=== PATIENT | female | born 1995 | race Hispanic/Latino ===

== ENCOUNTER 2019-03-28 12:11 | Emergency (ER) | payer OTHER ==
[~2019-03-28] VITALS: Ht 162.6 cm; Wt 90.7 kg
--- OUTSIDE RECORDS SUMMARY | 2019-03-28 12:14 | XMS REPORT ---
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 Allergies, Adverse Reactions, Alerts Allergy Name Allergy Type Status Severity Reaction(s) Onset Date Inactive Date Treating Clinician Comments No Known Allergies DA Active U 2018-05-20 00:00:00 Medications This patient has no known medications. Results Test Description Test Time Test Comments Text Results Atomic Results Result Comments - CTA HEAD 2018-05-20 13:27:00 Name: DELFINO ARMSTRONG [facility] : 1995 Age/S: 22 / F [address] Unit #: [id number] Loc: [place] [address] Phys: Serena Manrique MD Acct: [id number] Dis Date: Status: REG ER PHONE #: [phone] Exam Date: 05/20/2018 1200 FAX #: [phone] Reason: syncope, rle weakness EXAMS: CPT CODE: [id number] CTA HEAD 85200 HISTORY: Syncopal episode and right extremity weakness. COMPARISON: Head CT from same day. CTA NECK: 3-D images available. 100 mL of Isovue-370. Automated exposure control. NASCET criteria. The lung apices are clear. Superior mediastinum is unremarkable. Thyroid glands are normal. No canal or foraminal stenosis within the cervical spine. Thyroid glands are unremarkable. No pathologic adenopathy. Symmetrical fossa of Rosenmueller. Intraorbital contents appear unremarkable. Right side: Subclavian artery is widely patent. Nondominant vertebral artery is patent. CCA is widely patent. ICA and ECA are widely patent without hemodynamically significant stenosis. Left side: Subclavian artery is widely patent. Codominant vertebral artery remains widely patent. ICA, ECA and CCA are widely patent. No hemodynamically significant stenosis is noted. IMPRESSION: Widely patent bilateral ICA, CCA and ECA. Widely patent bilateral vertebral arteries with left dominance without dissection. CTA duckwater of [place]: 3-D images. Intracranial vertebral arteries are widely patent. The superior cerebellar arteries and both HAZMAT CDL DRIVER are patent. Left posterior communicating artery is patent. Right posterior communicating artery is absent. Bilateral petrous, cavernous and supraclinoid ICA are widely patent. Both MCA are widely patent. Both JOSE CARLOS are widely patent. Anterior communicating artery is patent. No aneurysm. Dural sinuses are well-opacified. IMPRESSION: Patent duck[place] of [place] with the exception of right posterior communicating artery which appears to be absent. No hemodynamically significant stenosis or aneurysm. PAGE 1 Signed Report (CONTINUED) Name: DELFINO ARMSTRONG [facility] : 1995 Age/S: 22 / F [address] Unit #: [id number] Loc: [facility] [place] [address] Phys: Serena Manrique MD Acct: [id number] Dis Date: Status: REG ER PHONE #: [phone] Exam Date: 05/20/2018 1200 FAX #: [phone] Reason: syncope, rle weakness EXAMS: CPT CODE: [id number] CTA HEAD 30668 <Continued> at 1327 Reported and signed by: Ricco Walsh M.D. CC: Serena Manrique MD Technologist:Mata Nguyen RT(R),(MR),(CT) CTDI: DLP: Trnscb Date/Time: 05/20/2018 (1327) t.[email or web address] Orig Print D/T: S: 05/20/2018 (0055) CTDI: DLP: PAGE 2 Signed Report - CTA NECK 2018-05-20 13:27:00 Name: DELFINO ARMSTRONG [facility] : 1995 Age/S: 22 / F [address] Unit #: [id number] Loc: [place] [address] Phys: Serena Manrique MD Acct: [id number] Dis Date: Status: REG ER PHONE #: [phone] Exam Date: 05/20/2018 1200 FAX #: [phone] Reason: syncope, rle weakness EXAMS: CPT CODE: [id number] CTA NECK 85447 HISTORY: Syncopal episode and right extremity weakness. COMPARISON: Head CT from same day. CTA NECK: 3-D images available. 100 mL of Isovue-370. Automated exposure control. NASCET criteria. The lung apices are clear. Superior mediastinum is unremarkable. Thyroid glands are normal. No canal or foraminal stenosis within the cervical spine. Thyroid glands are unremarkable. No pathologic adenopathy. Symmetrical fossa of Rosenmueller. Intraorbital contents appear unremarkable. Right side: Subclavian artery is widely patent. Nondominant vertebral artery is patent. CCA is widely patent. ICA and ECA are widely patent without hemodynamically significant stenosis. Left side: Subclavian artery is widely patent. Codominant vertebral artery remains widely patent. ICA, ECA and CCA are widely patent. No hemodynamically significant stenosis is noted. IMPRESSION: Widely patent bilateral ICA, CCA and ECA. Widely patent bilateral vertebral arteries with left dominance without dissection. CTA duck[place] of [place]: 3-D images. Intracranial vertebral arteries are widely patent. The superior cerebellar arteries and both HAZMAT CDL DRIVER are patent. Left posterior communicating artery is patent. Right posterior communicating artery is absent. Bilateral petrous, cavernous and supraclinoid ICA are widely patent. Both MCA are widely patent. Both JOSE CARLOS are widely patent. Anterior communicating artery is patent. No aneurysm. Dural sinuses are well-opacified. IMPRESSION: Patent duck[place] of [place] with the exception of right posterior communicating artery which appears to be absent. No hemodynamically significant stenosis or aneurysm. PAGE 1 Signed Report (CONTINUED) Name: PATTIDELFINO [facility] : 1995 Age/S: 22 / F [address] Unit #: [id number] Loc: [place] [address] Phys: Serena Manrique MD Acct: [id number] Dis Date: Status: REG ER PHONE #: [phone] Exam Date: 05/20/2018 1200 FAX #: [phone] Reason: syncope, rle weakness EXAMS: CPT CODE: [id number] CTA NECK 86691 <Continued> at 1327 Reported and signed by: Ricco Walsh M.D. CC: Serena Manrique MD Technologist:Mata Nguyen RT(R),(MR),(CT) CTDI: DLP: Trnscb Date/Time: 05/20/2018 (1327) t.[email or web address] Orig Print D/T: S: 05/20/2018 (0342) CTDI: DLP: PAGE 2 Signed Report URINALYSIS COMPLETE 2018-05-20 10:47:00 UA COLOR (test code=COLU) YELLOW YELLOW UA APPEARANCE (test code=APPU) Cloudy CLEAR UA GLUCOSE DIPSTICK (test code=DGLUU) NEGATIVE mg/dL NEGATIVE UA BILIRUBIN DIPSTICK (test code=BILU) NEGATIVE mg/dL NEGATIVE UA KETONE DIPSTICK (test code=KETU) Negative mg/dL NEGATIVE UA SPECIFIC GRAVITY (test code=SGU) 1.019 1.001-1.035 UA BLOOD DIPSTICK (test code=LAMONT) 2+ (Moderate) NEGATIVE UA PH DIPSTICK (test code=ART) 5.0 5.0-8.0 UA PROTEIN DIPSTICK (test code=PROU) Negative mg/dL NEGATIVE UA UROBILINIOGEN DIPSTICK (test code=URO) NEGATIVE mg/dL NEGATIVE UA NITRITE DIPSTICK (test code=WILMER) NEGATIVE NEGATIVE UA LEUKOCYTE ESTERASE W REFLEX (test code=LEUUR) TRACE NEGATIVE UA WBC (test code=WBCU) 0-5 #/HPF 0-5 UA RBC (test code=RBCU) 6-10 #/HPF 0-5 UA EPITHELIAL CELLS (test code=EPIU) FEW per HPF FEW UA MUCUS (test code=MUCU) MANY #/LPF FEW Urine Source? Clean CatchDRUGS OF ABUSE SCREEN [id number] 10:47:00* Test Item Value Reference Range Comments URN COCAINE (test code=COCAURN) POSITIVE <300 ng/mL This test provides only a preliminary test result. A morespecific alternate chemical method must be used in order toobtain a confirmed analytical result. Gas chromatography/mass spectrometry (GC/MS) is thepreferred confirmatory method. Other chemical confirmationmethods are available. Clinical consideration and professional judgment should be applied to any drug of abusetest result, particularly when preliminary positive resultsare used.Unconfirmed screening results must not be used fornon-medical purposes (e.g., employment testing, legaltesting). URN CANNABINOIDS (test code=CANNABURN) NEGATIVE <50 ng/mL URN AMPHETAMINE (test code=AMPHETURN) POSITIVE <1000 ng/mL This test provides only a preliminary test result. A morespecific alternate chemical method must be used in order toobtain a confirmed analytical result. Gas chromatography/mass spectrometry (GC/MS) is thepreferred confirmatory method. Other chemical confirmationmethods are available. Clinical consideration and professional judgment should be applied to any drug of abusetest result, particularly when preliminary positive resultsare used.Unconfirmed screening results must not be used fornon-medical purposes (e.g., employment testing, legaltesting). URN BARBITURATE (test code=BARBITURN) NEGATIVE <200 ng/mL URN BENZODIAZEPINE (test code=BENZOURN) NEGATIVE <200 ng/mL URN OPIATES (test code=OPIATURN) NEGATIVE <300 ng/mL URN PHENCYCLIDINE (PCP) (test code=PHENCURN) NEGATIVE <25 ng/mL URN METHADONE (test code=METHAURN) NEGATIVE <300 ng/mL Urine Source? Clean CatchURINALYSIS [id number] 10:25:00* Test Item Value Reference Range Comments UA COLOR (test code=COLU) YELLOW YELLOW UA APPEARANCE (test code=APPU) Cloudy CLEAR UA GLUCOSE DIPSTICK (test code=DGLUU) NEGATIVE mg/dL NEGATIVE UA BILIRUBIN DIPSTICK (test code=BILU) NEGATIVE mg/dL NEGATIVE UA KETONE DIPSTICK (test code=KETU) Negative mg/dL NEGATIVE UA SPECIFIC GRAVITY (test code=SGU) 1.019 1.001-1.035 UA BLOOD DIPSTICK (test code=LAMONT) 2+ (Moderate) NEGATIVE UA PH DIPSTICK (test code=ART) 5.0 5.0-8.0 UA PROTEIN DIPSTICK (test code=PROU) Negative mg/dL NEGATIVE UA UROBILINIOGEN DIPSTICK (test code=URO) NEGATIVE mg/dL NEGATIVE UA NITRITE DIPSTICK (test code=WILMER) NEGATIVE NEGATIVE UA LEUKOCYTE ESTERASE W REFLEX (test code=LEUUR) TRACE NEGATIVE UA WBC (test code=WBCU) 0-5 #/HPF 0-5 UA RBC (test code=RBCU) 6-10 #/HPF 0-5 UA EPITHELIAL CELLS (test code=EPIU) FEW per HPF FEW UA MUCUS (test code=MUCU) MANY #/LPF FEW Urine Source? Clean CatchDRUGS OF ABUSE SCREEN [id number] 10:25:00* Test Item Value Reference Range Comments URN COCAINE (test code=COCAURN) <300 ng/mL URN CANNABINOIDS (test code=CANNABURN) <50 ng/mL URN AMPHETAMINE (test code=AMPHETURN) <1000 ng/mL URN BARBITURATE (test code=BARBITURN) <200 ng/mL URN BENZODIAZEPINE (test code=BENZOURN) <200 ng/mL URN OPIATES (test code=OPIATURN) <300 ng/mL URN PHENCYCLIDINE (PCP) (test code=PHENCURN) <25 ng/mL URN METHADONE (test code=METHAURN) <300 ng/mL Urine Source? Clean CatchURINALYSIS [id number] 10:24:00* Test Item Value Reference Range Comments UA COLOR (test code=COLU) YELLOW YELLOW UA APPEARANCE (test code=APPU) Cloudy CLEAR UA GLUCOSE DIPSTICK (test code=DGLUU) NEGATIVE mg/dL NEGATIVE UA BILIRUBIN DIPSTICK (test code=BILU) NEGATIVE mg/dL NEGATIVE UA KETONE DIPSTICK (test code=KETU) Negative mg/dL NEGATIVE UA SPECIFIC GRAVITY (test code=SGU) 1.019 1.001-1.035 UA BLOOD DIPSTICK (test code=LAMONT) 2+ (Moderate) NEGATIVE UA PH DIPSTICK (test code=ART) 5.0 5.0-8.0 UA PROTEIN DIPSTICK (test code=PROU) Negative mg/dL NEGATIVE UA UROBILINIOGEN DIPSTICK (test code=URO) NEGATIVE mg/dL NEGATIVE UA NITRITE DIPSTICK (test code=WILMER) NEGATIVE NEGATIVE UA LEUKOCYTE ESTERASE W REFLEX (test code=LEUUR) TRACE NEGATIVE UA WBC (test code=WBCU) 0-5 #/HPF 0-5 UA EPITHELIAL CELLS (test code=EPIU) FEW per HPF FEW Urine Source? Clean CatchDRUGS OF ABUSE SCREEN [id number] 10:24:00* Test Item Value Reference Range Comments URN COCAINE (test code=COCAURN) <300 ng/mL URN CANNABINOIDS (test code=CANNABURN) <50 ng/mL URN AMPHETAMINE (test code=AMPHETURN) <1000 ng/mL URN BARBITURATE (test code=BARBITURN) <200 ng/mL URN BENZODIAZEPINE (test code=BENZOURN) <200 ng/mL URN OPIATES (test code=OPIATURN) <300 ng/mL URN PHENCYCLIDINE (PCP) (test code=PHENCURN) <25 ng/mL URN METHADONE (test code=METHAURN) <300 ng/mL Urine Source? Clean CatchURINALYSIS [id number] 10:21:00* Test Item Value Reference Range Comments UA COLOR (test code=COLU) YELLOW YELLOW UA APPEARANCE (test code=APPU) Cloudy CLEAR UA GLUCOSE DIPSTICK (test code=DGLUU) NEGATIVE mg/dL NEGATIVE UA BILIRUBIN DIPSTICK (test code=BILU) NEGATIVE mg/dL NEGATIVE UA KETONE DIPSTICK (test code=KETU) Negative mg/dL NEGATIVE UA SPECIFIC GRAVITY (test code=SGU) 1.019 1.001-1.035 UA BLOOD DIPSTICK (test code=LAMONT) 2+ (Moderate) NEGATIVE UA PH DIPSTICK (test code=ART) 5.0 5.0-8.0 UA PROTEIN DIPSTICK (test code=PROU) Negative mg/dL NEGATIVE UA UROBILINIOGEN DIPSTICK (test code=URO) NEGATIVE mg/dL NEGATIVE UA NITRITE DIPSTICK (test code=WILMER) NEGATIVE NEGATIVE UA LEUKOCYTE ESTERASE W REFLEX (test code=LEUUR) TRACE NEGATIVE UA WBC (test code=WBCU) per HPF 0-5 Urine Source? Clean CatchDRUGS OF ABUSE SCREEN [id number] 10:21:00* Test Item Value Reference Range Comments URN COCAINE (test code=COCAURN) <300 ng/mL URN CANNABINOIDS (test code=CANNABURN) <50 ng/mL URN AMPHETAMINE (test code=AMPHETURN) <1000 ng/mL URN BARBITURATE (test code=BARBITURN) <200 ng/mL URN BENZODIAZEPINE (test code=BENZOURN) <200 ng/mL URN OPIATES (test code=OPIATURN) <300 ng/mL URN PHENCYCLIDINE (PCP) (test code=PHENCURN) <25 ng/mL URN METHADONE (test code=METHAURN) <300 ng/mL Urine Source? Clean CatchBASIC METABOLIC [id number] 10:13:00* Test Item Value Reference Range Comments SODIUM (test code=NA) 141 mmol/L 136-145 POTASSIUM (test code=K) 3.7 mmol/L 3.5-5.1 CHLORIDE (test code=CL) 107.0 mmol/L 98-107 CARBON DIOXIDE (test code=CO2) 27.0 mmol/L 21-32 ANION GAP (test code=GAP) 10.7 10-20 GLUCOSE (test code=GLU) 98 mg/dL 74-106 BLOOD UREA NITROGEN (test code=BUN) 9 mg/dL 7-18 GLOMERULAR FILTRATION RATE (test code=GFR) > 60 mL/min >=60 Estimated GFR by using Modified MDRD formula.Chronic kidney disease is defined as either kidney damageor GFR <60 mL/min/1.73 m2 for >3 months. CREATININE (test code=CREAT) 0.80 mg/dL 0.55-1.02 Note change in reference range due to change in reagent. BUN/CREATININE RATIO (test code=BUN/CREA) 11.6 10-20 CALCIUM (test code=CA) 8.7 mg/dL 8.5-10.1 HEPATIC FUNCTION [id number] 10:13:00* Test Item Value Reference Range Comments TOTAL PROTEIN (test code=PROT) 8.1 gram/dL 6.4-8.2 ALBUMIN (test code=ALB) 3.8 g/dL 3.4-5.0 GLOBULIN (test code=GLOB) 4.3 gram/dL 2.7-4.2 ALBUMIN/GLOBULIN RATIO (test code=A/G) 0.9 0.75-1.50 BILIRUBIN TOTAL (test code=BILT) 0.30 mg/dL 0.0-1.0 BILIRUBIN DIRECT (test code=BILD) 0.10 mg/dL 0.0-0.20 SGOT/AST (test code=AST) 19 IUnit/L 15-37 SGPT/ALT (test code=ALT) 20 IUnit/L 12-78 ALKALINE PHOSPHATASE TOTAL (test code=ALKP) 87 IUnit/L 45-117 Note change in reference range due to change in reagent. CREATINE KINASE (CK)2018-05-20 10:13:00* Test Item Value Reference Range Comments CREATINE KINASE (CK) (test code=CK) 205 IUnit/L 26-208 [id number] 10:13:00* Test Item Value Reference Range Comments LIPASE (test code=LIP) 72 U/L 73.0-393.0 [id number] 10:13:00* Test Item Value Reference Range Comments MAGNESIUM (test code=MAG) 2.1 mg/dL 1.8-2.4 HCG SERUM [id number] 10:13:00* Test Item Value Reference Range Comments HCG SERUM QUAL (test code=HCGQL) NEGATIVE NEGATIVE This HCGQL test is NOT applicable for MALE patients.Check with nurse about probable order error.If Tumor Marker Test needed, nurse should order test "HCGTU"(Test #550.47147) THYROID STIMULATING [id number] 10:13:00* Test Item Value Reference Range Comments THYROID STIMULATING HORMONE (test code=TSH) 1.370 uIU/mL 0.36-3.74 TSH REFERENCE RANGES: EUTHYROID: 0.35 - 4.3 mIU/mL HYPO : > 5.5 mIU/mL HYPER : < 0.35 mIU/mL [id number] 10:13:00* Test Item Value Reference Range Comments TROPONIN-I (test code=TROPI) <0.015 ng/mL 0-0.045 [id number] 10:13:00* Test Item Value Reference Range Comments ALCOHOL (test code=ALC) 8 mg/dL 0.0-3.0 INTERPRETIVE DATA NOTE: POSITIVE SCREENING RESULTS SHOULD BE CONSIDERED PRESUMPTIVE.WHEN COLLECTED FOR MEDICAL PURPOSES ONLY. SPECIMEN WILL NOTBE COLLECTED BY CHAIN OF CUSTODY.IF A CONFIRMATION OF POSITIVE RESULTS IS DESIRED, ACONFIRMATION TEST MUST BE REQUESTED BY THE PHYSICIAN AT ANADDITIONAL CHARGE TO THE PATIENT. - XR CHEST 1 [id number] 09:59:00 FAX: Serena Manrique MD [phone] [place]: St: REG Name: DELFINO GORDON [facility] : [birth year] Age/S: 22/F [address] [facility] Unit #: [id number] Loc: [place] [address] Phys: Serena Manrique MD Acct: [id number] Dis Date: Status: REG ER PHONE #: [phone] Exam Date: 05/20/2018 0951 FAX #: [phone] Reason: WEAKNESS EXAMS: CPT CODE: [id number] XR CHEST 1 V 76149 HISTORY: Weakness. C OMPARISON: None available. No acute infiltrates, effusion or conge stion is noted. The cardiac and mediastinal silhouette are within normal limits. IMPRESSION: No acute infiltra al, effusion or congestion. at 0959 Reported and signed by: Ricco Walsh M.D. CC: Serena Manrique MD Technologist: SANDY TIRADO (R) Trnscrd Date/Time/By: 05/20/2018 (0959) : By: [email or web address] Orig Print D/T: S: 05/20/2018 (1002) PAGE 1 Signed Report CBC W/O [id number] 09:48:00 * Test Item Value Reference Range Comments WHITE BLOOD CELL (test code=WBC) 11.2 K/mm3 4.5-12.5 RED BLOOD CELL (test code=RBC) 4.32 mill/mm3 3.7-5.2 HEMOGLOBIN (test code=HGB) 11.9 gram/dL 11.5-15.5 HEMATOCRIT (test code=HCT) 38.0 % 36.0-46.0 MEAN CELL VOLUME (test code=MCV) 88.0 fL 80-98 MEAN CELL HGB (test code=MCH) 27.5 picogram 27.0-33.0 MEAN CELL HGB CONCETRATION (test code=MCHC) 31.3 gram/dL 33.0-36.0 RED CELL DISTRIBUTION WIDTH (test code=RDW) 13.3 % 11.6-16.2 PLATELET COUNT (test code=PLT) 346 K/mm3 150-450 MEAN PLATELET VOLUME (test code=MPV) 9.6 fL 6.7-11.0 - CT C-SPINE W/O [id number] 09:48:00 Name: DELFINO ARMSTRONG [facility] : 1995 Age/S: 22 / F [address] [facility] Unit #: [id number] Loc: [place] [address] Phys: Serena Manrique MD Acct: [id number] Dis Date: Status: REG ER PHONE #: [phone] Exam Date: 05/20/2018 09 FAX #: [phone] Reason: pain, trauma EXAMS: CPT CODE: [id number] CT C-SPINE W/O CONTRAST 60387 HISTORY: Pain after trauma. COMPARISON: None available. CT cervical spine without contrast: Automated exposure control. No acute fracture of the cervical spine. No prevertebral soft tissue swelling is noted. No canal or foraminal stenosis noted either. No disc herniation is visible. Thyroid glands are normal. Superior mediastinum is normal. Lung apices are clear. Anatomic alignment. Vertebral body heights are maint ained. Disc spaces are preserved. IMPRESSION: No acute fracture or anatomic alignment. Vertebral body heights are ma intained. a t 0948 Reported and signed by: Ricco Walsh M.D. CC: Serena Manrique MD Techno logist:CAROLINA LIU RT(R) CTDI: DLP: Trnscb Date/Time : 05/20/2018 (947) BudR.[email or web address] Orig Print D/T: S: 05/20/19 19 (8544) CTDI: DLP: PAGE 1 Emely d Report PROTHROMBIN [id number] 09:43:00* Test Item Value Reference Range Comments PROTHROMBIN TIME PATIENT (test code=PTP) 12.0 seconds 9.0-14.0 INTERNATIONAL NORMAL RATIO (test code=INR) 1.0 0.8-1.2 The therapeutic range for oral anticoagulant therapy formost indications is an international normalized ratio (INR)of between 2.0 and 3.0. The recommended therapeutic INRrange for various clinical situations is listed below: Clinical Situation INR range Pulmonary e mbolism treatment (2.0-3.0)Venous thrombosis treatmentVenous thrombosis prophylaxis (high risk surgery)Prevention of systemic embolism from: Acute myocardial infarction Valvular heart disease Atrial fibrillation Mechanical prosthetic heart valves (2.5-3.5) IS PATIENT ON ANTICOAGULANTS? NTHROMBOPLASTIN TIME [id number] 09:43:00* Test Item Value Reference Range Comments THROMBOPLASTIN TIME PARTIAL (test code=PTT) 31.3 seconds 25.0-36.5 IS PATIENT ON ANTICOAGULANTS? NBASIC METABOLIC [id number] 09:42:00* Test Item Value Reference Range Comments SODIUM (test code=NA) 141 mmol/L 136-145 POTASSIUM (test code=K) 3.7 mmol/L 3.5-5.1 CHLORIDE (test code=CL) 107.0 mmol/L 98-107 CARBON DIOXIDE (test code=CO2) mmol/L 21-32 ANION GAP (test code=GAP) 10-20 GLUCOSE (test code=GLU) mg/dL 74-106 BLOOD UREA NITROGEN (test code=BUN) mg/dL 7-18 GLOMERULAR FILTRATION RATE (test code=GFR) mL/min >=60 CREATININE (test code=CREAT) mg/dL 0.55-1.02 BUN/CREATININE RATIO (test code=BUN/CREA) 10-20 CALCIUM (test code=CA) mg/dL 8.5-10.1 HEPATIC FUNCTION [id number] 09:42:00* Test Item Value Reference Range Comments TOTAL PROTEIN (test code=PROT) gram/dL 6.4-8.2 ALBUMIN (test code=ALB) g/dL 3.4-5.0 GLOBULIN (test code=GLOB) gram/dL 2.7-4.2 ALBUMIN/GLOBULIN RATIO (test code=A/G) 0.75-1.50 BILIRUBIN TOTAL (test code=BILT) mg/dL 0.0-1.0 BILIRUBIN DIRECT (test code=BILD) mg/dL 0.0-0.20 SGOT/AST (test code=AST) IUnit/L 15-37 SGPT/ALT (test code=ALT) IUnit/L 12-78 ALKALINE PHOSPHATASE TOTAL (test code=ALKP) IUnit/L 45-117 CREATINE KINASE (CK)2018-05-20 09:42:00* Test Item Value Reference Range Comments CREATINE KINASE (CK) (test code=CK) IUnit/L 26-208 [id number] 09:42:00* Test Item Value Reference Range Comments LIPASE (test code=LIP) U/L 73.0-393.0 [id number] 09:42:00* Test Item Value Reference Range Comments MAGNESIUM (test code=MAG) mg/dL 1.8-2.4 HCG SERUM [id number] 09:42:00* Test Item Value Reference Range Comments HCG SERUM QUAL (test code=HCGQL) NEGATIVE NEGATIVE This HCGQL test is NOT applicable for MALE patients.Check with nurse about probable order error.If Tumor Marker Test needed, nurse should order test "HCGTU"(Test #550.19586) THYROID STIMULATING [id number] 09:42:00* Test Item Value Reference Range Comments THYROID STIMULATING HORMONE (test code=TSH) uIU/mL 0.36-3.74 [id number] 09:42:00* Test Item Value Reference Range Comments TROPONIN-I (test code=TROPI) ng/mL 0-0.045 [id number] 09:42:00* Test Item Value Reference Range Comments ALCOHOL (test code=ALC) mg/dL 0-3 BASIC METABOLIC [id number] 09:41:00* Test Item Value Reference Range Comments SODIUM (test code=NA) mmol/L 136-145 POTASSIUM (test code=K) mmol/L 3.5-5.1 CHLORIDE (test code=CL) mmol/L 98-107 CARBON DIOXIDE (test code=CO2) mmol/L 21-32 ANION GAP (test code=GAP) 10-20 GLUCOSE (test code=GLU) mg/dL 74-106 BLOOD UREA NITROGEN (test code=BUN) mg/dL 7-18 GLOMERULAR FILTRATION RATE (test code=GFR) mL/min >=60 CREATININE (test code=CREAT) mg/dL 0.55-1.02 BUN/CREATININE RATIO (test code=BUN/CREA) 10-20 CALCIUM (test code=CA) mg/dL 8.5-10.1 HEPATIC FUNCTION [id number] 09:41:00* Test Item Value Reference Range Comments TOTAL PROTEIN (test code=PROT) gram/dL 6.4-8.2 ALBUMIN (test code=ALB) g/dL 3.4-5.0 GLOBULIN (test code=GLOB) gram/dL 2.7-4.2 ALBUMIN/GLOBULIN RATIO (test code=A/G) 0.75-1.50 BILIRUBIN TOTAL (test code=BILT) mg/dL 0.0-1.0 BILIRUBIN DIRECT (test code=BILD) mg/dL 0.0-0.20 SGOT/AST (test code=AST) IUnit/L 15-37 SGPT/ALT (test code=ALT) IUnit/L 12-78 ALKALINE PHOSPHATASE TOTAL (test code=ALKP) IUnit/L 45-117 CREATINE KINASE (CK)2018-05-20 09:41:00* Test Item Value Reference Range Comments CREATINE KINASE (CK) (test code=CK) IUnit/L 26-208 [id number] 09:41:00* Test Item Value Reference Range Comments LIPASE (test code=LIP) U/L 73.0-393.0 [id number] 09:41:00* Test Item Value Reference Range Comments MAGNESIUM (test code=MAG) mg/dL 1.8-2.4 HCG SERUM [id number] 09:41:00* Test Item Value Reference Range Comments HCG SERUM QUAL (test code=HCGQL) NEGATIVE NEGATIVE This HCGQL test is NOT applicable for MALE patients.Check with nurse about probable order error.If Tumor Marker Test needed, nurse should order test "HCGTU"(Test #550.14933) THYROID STIMULATING [id number] 09:41:00* Test Item Value Reference Range Comments THYROID STIMULATING HORMONE (test code=TSH) uIU/mL 0.36-3.74 [id number] 09:41:00* Test Item Value Reference Range Comments TROPONIN-I (test code=TROPI) ng/mL 0-0.045 [id number] 09:41:00* Test Item Value Reference Range Comments ALCOHOL (test code=ALC) mg/dL 0-3 - CT HEAD/BRAIN W/O [id number] 09:39:00 Name: DELFINO ARMSTRONG [facility] : 1995 Age/S: 22 / F [address] Unit #: [id number] Loc: [place] [address] Phys: Serena Manrique MD Acct: [id number] Dis Date: Status: REG ER PHONE #: [phone] Exam Date: 05/20/2018 0936 FAX #: [phone] Reason: weakness, fall EXAMS: CPT CODE: [id number] CT HEAD/BRAIN W/O CONT 26471 HISTORY: Fall and weakness. COMPARISON: None available. CT brain without contrast: Automated exposure control. No acute intracranial bleeds or extra-axial collections and there is no acute territorial vascular infarction. The [place]-white matter differentiation is preserved. The sulci, gyri, ventricles and subarachnoid spaces and the basilar cisterns are normal for patient's age. No herniation or hydrocephalus or midline shift is noted. Fourth ventricle remains midline. Portions of the visualized paranasal sinuses are unremarkable. No obvious bony calvarial defect is noted. IMPRESSION: No acute in tracranial bleeds or extra-axial collections. No acute territo rial vascular infarction. No herniation or hydrocephalus or mi dline shift. These findings were discussed with Dr. Manrique at 9:38 AM. FOR INTERNAL CODING PURPOSES ONLY RESULT CODE: CVR at 0939 Reported and sign ed by: Ricco Walsh M.D. CC: Serena Manrique MD Technologist:CAORLINA LIU RT(R) CTDI: DLP: Trnscb Date/Time: 05/20/2018 (09) [email or web address] Orig Print D/T: S: 05/20/2018 (0942) CTDI: DLP: PAGE 1 Signed Report POC LACTIC [id number] 09:36:00* Test Item Value Reference Range Comments POC LACTIC ACID (test code=POCLAC) 1.13 MMOL/L 0.4-2.2
[2019-03-28] MEDS ORDERED: ACETAMINOPHEN/CODEINE 300MG - 30MG TAB PO ONE (12:30)
--- NOTE | 2019-03-28 13:36 | Diagnostic Imaging Report ---
EXAM: LOWER LEG LEFT, KNEE LEFT THREE VIEWS DATE: 03/28/2019 12:27 PM INDICATION: Injury COMPARISON: None FINDINGS: AP, oblique, lateral views are obtained of the left knee. AP and lateral views are obtained of the left tibia/fibula. Left knee: There is no evidence for acute fracture or dislocation. Bony mineralization is within normal limits. No focal lytic or blastic abnormalities identified. The joint spaces are preserved. The surrounding soft tissues are unremarkable without evidence for radiopaque foreign body. Left tibia/fibula: There is no evidence for acute fracture or dislocation. Bony mineralization is within normal limits. No focal lytic or blastic abnormality is identified. The ankle mortise is maintained. The surrounding soft tissues are unremarkable without evidence for radiopaque foreign body. IMPRESSION: No acute radiographic abnormality identified within the left knee or tibia/fibula. Signed by: Dr. Spike Hardy MD on 03/28/2019 1:32 PM
[2019-03-28 16:04] VITALS: BP 125/78
== END 2019-03-28 16:06 | disposition home or self-care (01) ==
LOC: ER 12:11
DX: S80.02XA Contusion of left knee, initial encounter (principal); W01.0XXA Fall on same level from slipping, tripping and stumbling without subsequent striking against object, initial encounter; Y99.0 Civilian activity done for income or pay
CPT/HCPCS: 99283